=== PATIENT | female | born 1960 | race Native Hawaiian/Other Pacific Islander ===

== ENCOUNTER 2025-02-24 17:11 | Emergency (ER) | payer OTHER, SELFPAY ==
[2025-02-24] VITALS (8 sets, daily range): BP systolic 147–178; BP diastolic 61–87; BMI 24.9
[2025-02-24 17:32] LABS: Hematocrit 38.8 % (37.0-47.0); Hemoglobin 13.8 g/dL (12.0-16.0); Mean Corp Hgb Conc. 35.6 g/dL (33.0-37.0); Mean Corpuscular Volume 89.6 fL (81.0-99.0); Nucleated Red Blood Cells % 0 %; Platelet Count 185 10^3/uL (130-400); Red Cell Dist. Width 12.5 % (11.5-14.5)
[2025-02-24 17:54] LABS: ALT (SGPT) 21 U/L (0-35); AST (SGOT) 24 U/L (14-36); Albumin 4.5 g/dl (3.5-5.0); Alkaline Phosphatase 67 U/L (38-126); Blood Urea Nitrogen 16 mg/dl (7-17); Calcium 9.2 mg/dl (8.4-10.2); Carbon Dioxide 27 mmol/L (22-30); Chloride 103 mmol/L (98-107); Glucose 144 mg/dl (70-99); Potassium 4.1 mmol/L (3.5-5.1); Sodium 137 mmol/L (135-145); Total Protein 7.6 g/dl (6.3-8.2); eGFR > 60.00
--- NOTE | 2025-02-24 22:00 | EDRN ---
Orthostatics completed on patient.
Layin/65 HR 78
sittin/68 HR 87
standin/61 HR 99
[2025-02-24] MEDS: NSS 500 IV (22:09)
--- NOTE | 2025-02-24 23:34 | ED.GENMED ---
History of Present Illness
General
Chief Complaint: Fainting/Passed Out
Source: patient and family
Time Seen by Provider: 02/24/25 20:13
History of Present Illness
History of Present Illness:
Note:
CHIEF COMPLAINT(S)
Syncope with headache.
HISTORY OF PRESENT ILLNESS
The patient is a 65-year-old female who experienced a syncopal episode approximately four and a half hours prior to presentation. She was engaged in cooking when she suddenly lost consciousness and fell, described as 'blacking out' without any prior
symptoms such as chest pain, trouble breathing, or abdominal pain. Upon regaining consciousness, the patient reported feeling sweaty and was given water, after which she felt better and visited the urgent care. Following the syncopal episode, she
developed a headache, which commenced shortly after recovery. She reports no nausea, vomiting, or pain preceding the event. No prior history of dizziness or lightheadedness was noted before the incident.
PAST MEDICAL AND SURIGICAL HISTORY
The patient denies any current medical conditions such as high blood pressure, diabetes, heart disease, or history of stroke.
CHRONIC MEDICAL CONDITIONS SIGNIFICANTLY AFFECTING CARE
None reported.
ALLERGIES
None reported.
MEDICATIONS
The patient states she is not on any medications except for taking vitamins.
REVIEW OF SYSTEMS
- Neurological: Positive for a headache following the syncopal episode.
- Cardiovascular: Denies chest pain.
- Respiratory: Denies trouble breathing.
- Gastrointestinal: Denies abdominal pain or cramping.
PHYSICAL EXAM
General: Alert, no acute distress.
Skin: Warm, dry.
Head: Normocephalic, atraumatic.
Neck: Supple, trachea midline.
Eyes, Ears, Nose, Mouth, and Throat: Oral mucosa moist. Pupils equal and reactive to light.
Cardiovascular: Heart sounds are regular without murmur. Normal peripheral perfusion, no edema.
Respiratory: Lungs are clear to auscultation, respirations are non-labored.
Gastrointestinal: Abdomen is non-distended.
Musculoskeletal: Normal range of motion, normal strength.
Neurological: Alert and oriented to person, place, time, and situation; cranial nerves intact II through XII; no pronator drift; normal [id number] test; equal bilateral strength.
Psychiatric: Cooperative, appropriate mood and affect.
PLAN
- Order lab work to assess possible causes of the syncopal episode.
- Perform a head CT scan to rule out any intracranial pathology given the headache and syncope.
- Monitor the patient with an Electrocardiogram (EKG) and continuous heart rhythm observation.
- Check orthostatic vital signs to assess for positional blood pressure changes.
- Educate the patient to alert staff if she feels unwell or symptoms worsen.
- Allow the patient to eat while periodic monitoring continues.
DIFFERENTIAL DIAGNOSIS
The Differential Diagnosis includes, in no particular order and is not limited to:
1. Vasovagal syncope
2. Orthostatic hypotension
3. Cardiac arrhythmia
4. Transient ischemic attack (TIA)
5. Dehydration
6. Electrolyte imbalance
7. Hypoglycemia
8. Neurological event (e.g., seizure)
9. Anemia
10. Intracranial hemorrhage
EKG
My independent EKG interpretation is:
- Time of EKG: [Time not provided]
- Rhythm: Normal sinus rhythm
- Heart rate: 90 beats per minute
- [place]: Left axis deviation
- Intervals: Left anterior fascicular block
- Abnormalities: No ischemic changes, no ST segment changes
Disposition:
SUMMARY OF ENCOUNTER
The patient, a 65-year-old female with a history of hypertension, presented to the emergency department after experiencing a syncopal episode at home. She reported sudden loss of consciousness without chest pain, shortness of breath, or palpitations
but did experience diaphoresis. In the emergency department, the patient underwent evaluation, including laboratory tests and imaging, which were essential in ruling out acute ischemic or hemorrhagic events. The management plan involved monitoring
her cardiac rhythm and evaluating potential causes of syncope. The patients symptoms and presentation suggested a vasovagal syncope, especially given the association with diaphoresis. She was evaluated thoroughly and monitored in the ED with no
abnormal findings during observation, and she tolerated food without issues. She expressed a desire to be discharged and appeared stable.
DISPOSITION
Discharge
ASSESSMENT
The syncopal episode is likely of vasovagal nature, given the sudden onset with diaphoresis and absence of cardiac or neurological abnormalities upon evaluation.
PLAN
- Monitor the patients symptoms and educate her on recognizing potential triggers for vasovagal syncope.
- Ensure the patient is stable and comfortable before discharge.
- Recommend follow-up with her primary care provider to review her events and discuss further management.
INDEPENDENT REVIEW OF LABS AND INTERPRETATION OF TESTS
- My independent review of CBC is normal.
- My independent review of CMP is normal.
- My independent interpretation of the head CT shows no acute ischemic changes or hemorrhage.
- My independent EKG interpretation is normal sinus rhythm.
PATIENT EDUCATION AND COUNSELING
The patient was counseled on potential triggers for vasovagal syncope and advised to seek medical attention if symptoms recur or worsen. She was also advised to maintain hydration and avoid situations that may provoke similar episodes.
FOLLOW-UP INSTRUCTIONS
Please follow up with your primary care provider to discuss the syncope episode and potential need for further investigation.
MEDICAL DECISION MAKING
Number and Complexity of Problems Addressed:
- Chronic conditions affecting care [Hypertension]
- Differential Diagnosis includes vasovagal syncope, orthostatic hypotension, cardiac arrhythmia, transient ischemic attack (TIA), dehydration, electrolyte imbalance, hypoglycemia, neurological event (e.g., seizure), anemia, intracranial hemorrhage.
Data:
Category 1:
- Lab tests ordered and reviewed: CBC, CMP, head CT.
- EKG independently interpreted.
Category 3:
- Consideration of admission/observation was evaluated but deemed unnecessary as the patient was stable for outpatient management.
Risk:
- Consideration of Admission/Observation: Escalation of care including admission/observation was considered given the complexity and risk of the patients presenting complaint, exam findings, and/or their underlying comorbidities. However,
ultimately, I feel the patient is safe for outpatient management with close follow-up. Reasoning: Work-up reassuring, does not reveal any acute life/organ-threatening processes, patients symptoms well controlled upon reevaluation, reexamination is
reassuring, vitals are stable, patient agreeable with discharge, reliable for follow-up.
DIAGNOSIS
- Vasovagal syncope (ICD-10 R55)
Phy Exam
Physical Exam
Physical Exam:
.
Course
Orders/Labs/Results
Orders:
Orders
02/24/25 17:16
Electrocardiogram (*1) Urgent
Reason for Study: Syncope
EKG- Treatment ONCE
02/24/25 17:23
Complete Blood Count/With Diff Urgent
Comprehensive Metabolic Panel Urgent
02/24/25 22:04
CT Head W/o Iv Contrast Urgent
Comment:
Reason For Exam: FREY, syncope
02/24/25 22:05
0.9% Sodium Chloride 500 ml [Nss] 500 ml IV BOLUS
Abnormal Lab Results
02/24/25
17:23
MCH 31.9 H pg
(27.0-31.0)
Glucose 144 H mg/dl
(70-99)
02/24/25 17:23
02/24/25 17:23
Vital Signs
Initial and Last Documented VS:
Initial Vital Signs
Temp Pulse Resp Pulse Ox
98.1 F 92 18 99
02/24/25 17:14 02/24/25 17:14 02/24/25 17:14 02/24/25 17:14
Last Documented Vital Signs
Temp Pulse Resp BP Pulse Ox
98.1 F 82 14 147/70 98
02/24/25 17:14 02/24/25 23:54 02/24/25 23:54 02/24/25 23:54 02/24/25 23:36
*Pulse Oximetry
SaO2: 98
Oxygen Mode of Delivery: Room air
Patient hypoxic: no
*Critical Care Note
Total Time (30-74mins, 75-104mins- exclusive of procedures): Not Applicable
ED Attending Note
-
Portions of this chart may have been created with voice recognition software.� Occasional wrong word or��sound alike� substitutions may have occurred due to the inherent limitations of voice recognition software.
Discharge Plan
Departure
Patient Disposition: Home (Routine Discharge)
Date of Disposition: 02/24/25
Time of Disposition: 23:35
Patient with high blood pressure during this ER visit?: Yes
Discharge Problem:
Syncope
Instructions: Syncope (Fainting) (DC), BLOOD PRESSURE
Prescriptions:
No Action
ciprofloxacin HCl 500 mg tablet
500 mg PO BID 7 Days Qty: 14 0RF
metronidazole 500 mg tablet
500 mg PO TID 7 Days Qty: 21 0RF
ondansetron 4 mg tablet,disintegrating
4 mg PO TIDPRN PRN (Reason: nausea/vomiting) Qty: 20 0RF
Referrals:
Waldo Lees DO [Family Provider, General]
Activity Restrictions/Additional Instructions:
Return immediately for chest pain, shortness of breath, palpitations, weakness of any kind, passing out episode or any other concerns. Please see your doctor in the next 3 to 5 days for follow-up and reevaluation.
Your blood pressure was elevated while in the Emergency Department, please have your doctor re-evaluate it in the next 48 hours as untreated hypertension may lead to serious complications.
Interventions
Interventions:
*Risk Screen - Suicide Last Done: 02/24/25 21:05
*General Assessment Last Done: 02/24/25 21:05
*Neglect/Abuse Screening Last Done: 02/24/25 21:05
*ED- Fall Risk Assessment Last Done: 02/24/25 21:05
*ED COVID-19 Vaccine History Last Done: 02/24/25 21:05
*ED Influenza Vaccine History Last Done: 02/24/25 21:05
*Nursing Disposition Last Done: 02/25/25 00:07
ED- Cardiac Assessment Last Done: 02/24/25 21:11
ED- Neurological Assessment Last Done: 02/24/25 21:15
Discharge Date and Time
Discharge Date/Time: 02/25/25 00:08
Print Language: MACEDONIAN
== END 2025-02-25 00:08 | disposition home or self-care (01) ==
LOC: EMR 17:11
PROVIDERS: Emergency Medicine; EMERGENCY PHYSICIAN Emergency Medicine; FAMILY PHYSICIAN Internal Medicine
DX: R55 Syncope and collapse (principal); I44.4 Left anterior fascicular block; R03.0 Elevated blood-pressure reading, without diagnosis of hypertension
CPT/HCPCS: 99284; 96360; 70450; 80053; 85025; 93005